=== PATIENT | female | born 1985 | race Caucasian/White ===

== ENCOUNTER → 2017-08-13 06:43 | Outpatient (CLI) | payer OTHER, SELFPAY ==
--- NOTE | 2017-08-13 06:52 | MRI_ITS ---
STUDY: MRI RIGHT HINDFOOT/MIDFOOT REASON FOR EXAM: Right heel and arch pain, no specific injury. TECHNIQUE: Standardized fat and water weighted pulse sequences were obtained in all 3 orthogonal planes. COMPARISON: None. FINDINGS: Normal tibiotalar and posterior subtalar articulations. Normal talonavicular articulation. Normal calcaneocuboid articulation. Normal navicular-cuneiform articulations. Normal intercuneiform articulations. Normal first tarsometatarsal articulation. Normal Lisfranc ligament. Normal second and third tarsometatarsal articulations. Normal cuboid fourth and cuboid fifth tarsometatarsal articulation. Normal visualized first through fifth metatarsi. Normal tibialis anterior tendon. Normal extensor hallucis longus tendon. Normal extensor digitorum longus tendons. Normal peroneus longus tendon and distal insertion. Normal peroneus brevis tendon and distal insertion. Normal flexor tendons. Normal Achilles tendon. There is thickening and slight edema in the central cord of the plantar fascia (inversion recovery sagittal image 11) and periaponeurotic edema of the lateral cord of the plantar fascia (inversion recovery sagittal images 9-11). There is no bone edema or stress fracture of the calcaneus. There is mild edema in the proximal abductor digiti minimi muscle (inversion recovery sagittal image 10). Normal subcutis adipose space. MRI/Lower Ext/No Jt/w/o IMPRESSION: Plantar fasciitis. Low-grade strain of the proximal abductor digiti minimi muscle. Otherwise, unremarkable MRI of the right hindfoot/midfoot. Electronically Signed: Noman Valverde MD at 12:34 EDT Tel , Service support ,
== END ==
PROVIDERS: Family Provider Family Medicine; PCP Family Medicine; Visit Provider Orthopaedic Surgery
DX: M79.671 Pain in right foot (principal)
CPT/HCPCS: 73718

== ENCOUNTER → 2018-05-25 06:33 | Outpatient (CLI) | payer OTHER, SELFPAY ==
--- NOTE | 2018-05-25 06:45 | MRI_ITS ---
STUDY: MRI RIGHT REARFOOT WITHOUT CONTRAST REASON FOR EXAM: Female, 32 years old. Plantar fasciitis. Pain. History of plantar fasciotomy November 14, 2017. TECHNIQUE: Standardized fat and water weighted pulse sequences were obtained in all 3 orthogonal planes. COMPARISON: August 13, 2017. FINDINGS: Normal subcutis adipose space. Normal posterior tibialis tendon. Normal flexor digitorum longus tendon. Normal flexor hallucis longus tendon. Normal peroneus longus and brevis tendons. Normal tibialis anterior tendon. Normal extensor hallucis longus tendon. Normal extensor digitorum longus tendons. Normal Achilles tendon and teno-osseous insertion. There is thickening and edema of the proximal central cord of the plantar fascia, series 8 images and . There is a plantar calcaneal spur with cancellous marrow edema consistent with a marrow stress phenomena. Normal intrinsic muscles of the rearfoot. Normal distal tibiofibular syndesmotic ligamentous complex. Normal lateral ligamentous complex. Normal subtalar ligaments and sinus tarsi. Normal deltoid ligamentous complexes. Normal plantar calcaneonavicular (spring) ligament. Normal tibiotalar articulation. Normal talar dome. Normal subtalar articulations. Normal talonavicular articulation. Normal calcaneocuboid articulation. Normal navicular-cuneiform articulations. MRI/Lower Ext/No Jt/w/o IMPRESSION: Plantar fasciitis with reactive spurring and edema of the calcaneus. Electronically Signed: Todd Moss MD at 8:36 EST , Service support ,
== END ==
PROVIDERS: Family Provider Family Medicine; PCP Family Medicine
DX: M72.2 Plantar fascial fibromatosis (principal)
CPT/HCPCS: 73718